=== PATIENT | male | born 1965 | race Caucasian/White ===

== ENCOUNTER → 2017-11-06 07:01 | Outpatient (CLI) | payer OTHER, SELFPAY ==
[2017-11-06 10:13] LABS: Absolute Lymphocyte Count 1.73 X10^3/ul (0.83-4.51); Absolute Neutrophil Count 5.8 X10^3/uL (2.0-7.7); Basophil# 0.05 X10^3/uL; Basophil% 0.6 % (0-1); Eosinophil# 0.13 X10^3/uL; Eosinophils% 1.5 % (0-5); Hematocrit 50.9 % (40-54); Hemoglobin 17.4 g/dl (13.0-16.5); Lymphocyte # 1.73 X10^3/ul (4.0); Lymphocyte % 19.7 % (19-41); Mean Corp Hgb Conc 34.2 g/gl (32-36); Mean Corpuscular Hgb 29.8 pg (27.0-32.0); Mean Corpuscular Volume 87.3 fL (80-94); Mean Platelet Vol. 11.8 fl (6.2-12.0); Monocyte# 1.03 X10^3/uL; Monocyte% 11.7 % (0-10); Neutrophil # 5.81 X10^3/uL (2.7-7.7); Platelet Count 311 K/mm3 (150-450); RBC Distribution Width CV 13.9 % (11.6-14.6); RBC Distribution Width SD 44.4 fl (35.1-43.9); Red Blood Count 5.83 M/mm3 (4.6-6.2); White Blood Count 8.8 K/mm3 (4.4-11.0)
[2017-11-06 10:15] LABS: POSITIVE COUNT NO; POSITIVE DIFFERENTIAL NO; POSITIVE MORPHOLOGY NO
[2017-11-06 10:41] LABS: Hemoglobin A1c 10.2 % (4.2-6.3)
[2017-11-06 10:57] LABS: Cholesterol 140 mg/dL (200); High Density Lipoprotein 44 mg/dL; PSA,Total - Annual Screen 0.81 ng/mL (0.00-4.00); Thyroid Stim Hormone (TSH) 2.96 uIU/mL (0.358-3.74); Triglycerides 149 mg/dL; Very Low Density Lipoprotein 30 mg/dL (5-40)
[2017-11-11 15:08] LABS: Testosterone, Free 8.89 ng/dL (5.00-21.00)
[2017-11-12 11:59] LABS: Testosterone, % Free 4.91 % (1.50-4.20); Testosterone, Total 181 ng/dL (264-916)
== END ==
PROVIDERS: Family Provider Family Medicine; PCP Family Medicine; Visit Provider Family Medicine
DX: E11.9 Type 2 diabetes mellitus without complications (principal); E29.1 Testicular hypofunction; E78.5 Hyperlipidemia, unspecified; E66.9 Obesity, unspecified; Z12.5 Encounter for screening for malignant neoplasm of prostate
CPT/HCPCS: 36415; 80061; 83036; 84153; 84402; 84403; 84443; 85025; G0103

== ENCOUNTER → 2018-01-28 15:21 | Outpatient (CLI) | payer OTHER, SELFPAY ==
[2018-01-28 17:28] LABS: Absolute Lymphocyte Count 2.65 X10^3/ul (0.83-4.51); Absolute Neutrophil Count 5.1 X10^3/uL (2.0-7.7); Basophil# 0.05 X10^3/uL; Basophil% 0.5 % (0-1); Eosinophil# 0.19 X10^3/uL; Eosinophils% 2.1 % (0-5); Hematocrit 53.2 % (40-54); Hemoglobin 17.8 g/dl (13.0-16.5); Lymphocyte # 2.65 X10^3/ul (4.0); Lymphocyte % 28.8 % (19-41); Mean Corp Hgb Conc 33.5 g/gl (32-36); Mean Corpuscular Hgb 30.7 pg (27.0-32.0); Mean Corpuscular Volume 91.7 fL (80-94); Mean Platelet Vol. 11.5 fl (6.2-12.0); Monocyte# 1.19 X10^3/uL; Monocyte% 12.9 % (0-10); Neutrophil # 5.08 X10^3/uL (2.7-7.7); Neutrophil % 55.4 % (47-70); Platelet Count 375 K/mm3 (150-450); RBC Distribution Width CV 13.7 % (11.6-14.6); RBC Distribution Width SD 45.8 fl (35.1-43.9); White Blood Count 9.2 K/mm3 (4.4-11.0)
[2018-01-28 17:36] LABS: Hemoglobin A1c 9.9 % (4.2-6.3); POSITIVE COUNT NO; POSITIVE DIFFERENTIAL NO; POSITIVE MORPHOLOGY NO
== END ==
PROVIDERS: Family Provider Family Medicine; PCP Family Medicine; Visit Provider Family Medicine
DX: E11.9 Type 2 diabetes mellitus without complications (principal); D58.2 Other hemoglobinopathies
CPT/HCPCS: 36415; 83036; 85025

== ENCOUNTER → 2019-03-31 | Outpatient (CLI) | payer OTHER, SELFPAY ==
[2019-03-31 10:04] LABS: Absolute Lymphocyte Count 1.55 X10^3/uL (0.83-4.51); Absolute Neutrophil Count 5.1 X10^3/uL (2.0-7.7); Basophil# 0.06 X10^3/uL; Basophil% 0.8 % (0-1); Eosinophil# 0.13 X10^3/uL; Eosinophils% 1.7 % (0-5); Hematocrit 45.5 % (40-54); Hemoglobin 15.1 g/dL (13.0-16.5); Lymphocyte # 1.55 X10^3/ul (4.0); Lymphocyte % 20.1 % (19-41); Mean Corp Hgb Conc 33.2 g/dL (32-36); Mean Corpuscular Hgb 29.7 pg (27.0-32.0); Mean Corpuscular Volume 89.6 fL (80-94); Mean Platelet Vol. 12.8 fl (6.2-12.0); Monocyte# 0.82 X10^3/uL; Monocyte% 10.6 % (0-10); NRBC Flagged by Analyzer 0 % (0-5); Neutrophil % 66.3 % (47-70); Platelet Count 277 K/mm3 (150-450); RBC Distribution Width CV 12.4 % (11.6-14.6); RBC Distribution Width SD 40.9 fl (35.1-43.9); Red Blood Count 5.08 M/mm3 (4.6-6.2); White Blood Count 7.7 K/mm3 (4.4-11.0)
[2019-03-31 10:31] LABS: Hemoglobin A1c 10.7 % (4.2-6.3)
[2019-03-31 10:33] LABS: AST(SGOT) 12 U/L (15-37); Alanine Aminotransfer ALT/SGPT 24 U/L (16-61); Albumin, Serum 3.4 g/dL (3.2-5.0); Alkaline Phosphatase 44 U/L (45-117); Anion Gap 9 (5-15); BUN 18 mg/dL (7-18); BUN/Creat Ratio 25.2 RATIO (10-20); Calcium,Total 8.5 mg/dL (8.5-10.1); Chloride 104 mmol/L (98-107); Cholesterol 175 mg/dL (200); Creatinine, Serum 0.71 mg/dL (0.70-1.30); EST Glomerular Filtration Rate 122 mL/min (>60); Est Glom Filt Rate - Afr Amer 148 mL/min (>60); Globulin 3.5 g/dL (2.2-4.2); Glucose 277 mg/dL (74-106); High Density Lipoprotein 44 mg/dL; Potassium 3.9 mmol/L (3.5-5.1); Protein, Total 6.9 g/dL (6.4-8.2); Sodium Level 135 mmol/L (136-145); Triglycerides 165 mg/dL; Very Low Density Lipoprotein 33 mg/dL (5-40)
[2019-04-04 20:07] LABS: Testosterone, Free 5.48 ng/dL (5.00-21.00)
[2019-04-06 13:44] LABS: Testosterone, % Free 3.15 % (1.50-4.20); Testosterone, Total 174 ng/dL (264-916)
== END | disposition home or self-care (01) ==
LOC: MTLAB 07:04
PROVIDERS: Family Provider Family Medicine; PCP Family Medicine; Referring Provider Family Medicine; Visit Provider Family Medicine
DX: Z00.00 Encounter for general adult medical examination without abnormal findings (principal); E11.9 Type 2 diabetes mellitus without complications; E29.1 Testicular hypofunction
CPT/HCPCS: 36415; 80053; 80061; 83036; 84402; 84403; 85025

== ENCOUNTER → 2019-05-21 10:32 | Outpatient (CLI) | payer OTHER, SELFPAY ==
--- NOTE | 2019-05-21 10:36 | STEWCON_ITS ---
Reason For Study: SU, FAMILY HX HEART DISEASE Stress Results Protocol: Stress Echocardiogram Maximum Predicted HR: 166 bpm Target HR: 141 bpm % Maximum Predicted HR: 93 % DurationHeart Rate Stage (mm:ss) (bpm) BP Comment BASELINE 83 118/88DILUTED DEFINITY 4 CC USED WESLEY PROTOCOL- STAGE 1 3:00 116 128/90NO SX WESLEY PROTOCOL- STAGE 2 3:00 131 140/84SL SOB WESLEY PROTOCOL- STAGE 3 2:03 155 158/84SOB, NO CP RECOVERY 98 124/86 Stress Duration: 8:03 mm:ss Maximum Stress HR: 155 bpm Baseline Echocardiogram Findings The estimated ejection fraction is 65 %. Stress Echo Wall motion Data Resting WM Intermediate WM Stress WM Resting Wall Motion Wall Motion Stress No regional wall motion No regional wall motion abnormalities noted. abnormalities noted. EKG Data The baseline ECG displays normal sinus rhythm. The patient exercised according to the regular Wesley protocol for a total duration of 8:03. The maximum heart rate attained was 155 beats per minute. This was 93% of maximum predicted heart rate. The patient exercised into stage 3 of the Wesley protocol. During stress, there were no ST or T wave changes noted to suggest ischemia. No clinical angina was noted. Interpretation Summary The estimated ejection fraction is 65 %. Normal, adequate, treadmill echocardiogram. Negative for ischemia by EKG and echocardiographic criteria. No anginal symptoms noted. No arrhythmias noted. Appropriate blood pressure response to exercise. Average exercise capacity for age. Decreased sensitivity due to poor echo windows requiring Definity agent. Test terminated due to attainment target heart rate and dyspnea. Patient tolerated the procedure well. No complications. The study was technically difficult. Contrast injection was performed. Ordering Physician: Abran Emmanuel Referring Physician: Abran Emmanuel Performed By: Zulma Lewsi, RDCS, RVT
== END ==
PROVIDERS: Family Provider Family Medicine; PCP Family Medicine; Referring Provider Family Medicine; Visit Provider Family Medicine
DX: R06.09 Other forms of dyspnea (principal); E11.9 Type 2 diabetes mellitus without complications
CPT/HCPCS: 93017; 93350; Q9957; A4216; C8928

== ENCOUNTER → 2019-10-02 | Outpatient (CLI) | payer OTHER, SELFPAY ==
[2019-09-09 08:26] VITALS: BMI 34.8
[2019-10-02 10:28] LABS: Absolute Lymphocyte Count 1.97 X10^3/uL (0.83-4.51); Absolute Neutrophil Count 5.2 X10^3/uL (2.0-7.7); Basophil# 0.07 X10^3/uL; Basophil% 0.8 % (0-1); Eosinophil# 0.16 X10^3/uL; Eosinophils% 1.9 % (0-5); Hematocrit 45.9 % (40-54); Hemoglobin 15.3 g/dL (13.0-16.5); Lymphocyte # 1.97 X10^3/ul (4.0); Lymphocyte % 23.3 % (19-41); Mean Corp Hgb Conc 33.3 g/dL (32-36); Mean Corpuscular Hgb 30.5 pg (27.0-32.0); Mean Corpuscular Volume 91.6 fL (80-94); Mean Platelet Vol. 12.1 fl (6.2-12.0); Monocyte# 0.97 X10^3/uL; Monocyte% 11.5 % (0-10); NRBC Flagged by Analyzer 0 % (0-5); Neutrophil # 5.23 X10^3/uL (2.7-7.7); Platelet Count 326 K/mm3 (150-450); RBC Distribution Width CV 13.4 % (11.6-14.6); RBC Distribution Width SD 44.5 fl (35.1-43.9); Red Blood Count 5.01 M/mm3 (4.6-6.2); White Blood Count 8.4 K/mm3 (4.4-11.0)
[2019-10-02 11:01] LABS: Hemoglobin A1c 8.2 % (4.2-6.3)
[2019-10-02 11:20] LABS: AST(SGOT) 8 U/L (15-37); Alanine Aminotransfer ALT/SGPT 20 U/L (16-61); Albumin, Serum 3.5 g/dL (3.2-5.0); Alkaline Phosphatase 42 U/L (45-117); Anion Gap 10 (5-15); BUN 21 mg/dL (7-18); BUN/Creat Ratio 24.6 RATIO (10-20); Calcium,Total 8.6 mg/dL (8.5-10.1); Chloride 104 mmol/L (98-107); Creatinine, Serum 0.85 mg/dL (0.70-1.30); EST Glomerular Filtration Rate 99 mL/min (>60); Est Glom Filt Rate - Afr Amer 120 mL/min (>60); Globulin 3.6 g/dL (2.2-4.2); Glucose 189 mg/dL (74-106); Potassium 4.1 mmol/L (3.5-5.1); Protein, Total 7.1 g/dL (6.4-8.2); Sodium Level 137 mmol/L (136-145)
== END | disposition home or self-care (01) ==
LOC: MTLAB 07:05
PROVIDERS: PCP Family Medicine; Referring Provider Family Medicine; Visit Provider Family Medicine
DX: E78.5 Hyperlipidemia, unspecified (principal); E66.9 Obesity, unspecified; D58.2 Other hemoglobinopathies
CPT/HCPCS: 36415; 80053; 83036; 85025

== ENCOUNTER → 2020-03-28 07:05 | Outpatient (CLI) | payer OTHER, SELFPAY ==
[2019-09-09 08:26] VITALS: BMI 34.8
[2020-03-28 10:21] LABS: Absolute Lymphocyte Count 1.81 X10^3/uL (0.83-4.51); Absolute Neutrophil Count 4.9 X10^3/uL (2.0-7.7); Basophil# 0.08 X10^3/uL; Eosinophil# 0.18 X10^3/uL; Eosinophils% 2.3 % (0-5); Hemoglobin 16.1 g/dL (13.0-16.5); Lymphocyte # 1.81 X10^3/ul (4.0); Lymphocyte % 23.3 % (19-41); Mean Corp Hgb Conc 32.9 g/dL (32-36); Mean Corpuscular Hgb 29.2 pg (27.0-32.0); Mean Corpuscular Volume 88.9 fL (80-94); Mean Platelet Vol. 12.5 fl (6.2-12.0); Monocyte# 0.81 X10^3/uL; Monocyte% 10.4 % (0-10); NRBC Flagged by Analyzer 0 % (0-5); Neutrophil # 4.86 X10^3/uL (2.7-7.7); Neutrophil % 62.7 % (47-70); Platelet Count 281 K/mm3 (150-450); RBC Distribution Width CV 12.5 % (11.6-14.6); RBC Distribution Width SD 41.1 fl (35.1-43.9); Red Blood Count 5.51 M/mm3 (4.6-6.2); White Blood Count 7.8 K/mm3 (4.4-11.0)
[2020-03-28 10:35] LABS: Hemoglobin A1c 9.9 % (3.8-5.6)
[2020-03-28 10:37] LABS: Microalbumin,Random Urine 17.6 mg/L (NO RANGE EST.); Microalbumin:Creatinine Ratio 12.1 mg/g CRE (<30 mg/g CRE)
[2020-03-28 10:48] LABS: ALB/GLOB Ratio 0.9 RATIO (0.9-2.4); AST(SGOT) 9 U/L (15-37); Alanine Aminotransfer ALT/SGPT 24 U/L (16-61); Albumin, Serum 3.5 g/dL (3.2-5.0); Alkaline Phosphatase 50 U/L (45-117); Anion Gap 8 (5-15); BUN 22 mg/dL (7-18); BUN/Creat Ratio 26.5 RATIO (10-20); Calcium,Total 8.8 mg/dL (8.5-10.1); Chloride 104 mmol/L (98-107); Cholesterol 163 mg/dL (200); Creatinine, Serum 0.83 mg/dL (0.70-1.30); EST Glomerular Filtration Rate 102 mL/min (>60); Est Glom Filt Rate - Afr Amer 124 mL/min (>60); Globulin 3.7 g/dL (2.2-4.2); Glucose 268 mg/dL (74-106); High Density Lipoprotein 51 mg/dL; Potassium 4.2 mmol/L (3.5-5.1); Protein, Total 7.2 g/dL (6.4-8.2); Sodium Level 135 mmol/L (136-145); Triglycerides 118 mg/dL; Very Low Density Lipoprotein 24 mg/dL (5-40)
== END ==
PROVIDERS: PCP Family Medicine; Referring Provider Family Medicine; Visit Provider Family Medicine
DX: E11.9 Type 2 diabetes mellitus without complications (principal); E78.5 Hyperlipidemia, unspecified; D58.2 Other hemoglobinopathies; Z12.5 Encounter for screening for malignant neoplasm of prostate
CPT/HCPCS: 36415; 80053; 80061; 82043; 82570; 83036; 84153; 85025; G0103

== ENCOUNTER → 2020-10-26 07:00 | Outpatient (CLI) | payer OTHER, SELFPAY ==
[2019-09-09 08:26] VITALS: BMI 34.8
[2020-10-26 10:13] LABS: Hemoglobin A1c 9.8 % (3.8-5.6)
== END ==
PROVIDERS: PCP Family Medicine; Referring Provider Family Medicine; Visit Provider Family Medicine
DX: E11.9 Type 2 diabetes mellitus without complications (principal)
CPT/HCPCS: 36415; 83036

== ENCOUNTER → 2021-02-13 07:11 | Outpatient (CLI) | payer OTHER, SELFPAY ==
[2021-02-13 10:01] LABS: Basophil# 0.05 X10^3/uL; Basophil% 0.8 % (0-1); Eosinophil# 0.04 X10^3/uL; Eosinophils% 0.6 % (0-5); Hematocrit 48.8 % (40-54); Lymphocyte % 22.7 % (19-41); Mean Corp Hgb Conc 32.8 g/dL (32-36); Mean Corpuscular Hgb 29.5 pg (27.0-32.0); Mean Platelet Vol. 12.7 fl (6.2-12.0); Monocyte# 0.64 X10^3/uL; Monocyte% 10.4 % (0-10); NRBC Flagged by Analyzer 0 % (0-5); Platelet Count 282 K/mm3 (150-450); RBC Distribution Width CV 13.2 % (11.6-14.6); RBC Distribution Width SD 43.5 fl (35.1-43.9); Red Blood Count 5.42 M/mm3 (4.6-6.2); White Blood Count 6.2 K/mm3 (4.4-11.0)
[2021-02-13 10:17] LABS: ALB/GLOB Ratio 0.8 RATIO (0.9-2.4); AST(SGOT) 12 U/L (15-37); Alanine Aminotransfer ALT/SGPT 29 U/L (16-61); Albumin, Serum 3.1 g/dL (3.2-5.0); Alkaline Phosphatase 49 U/L (45-117); Anion Gap 9 (5-15); BUN 18 mg/dL (7-18); Calcium,Total 8.9 mg/dL (8.5-10.1); Chloride 99 mmol/L (98-107); Cholesterol 241 mg/dL (200); Creatinine, Serum 0.82 mg/dL (0.70-1.30); EST Glomerular Filtration Rate 104 mL/min (>60); Est Glom Filt Rate - Afr Amer 125 mL/min (>60); Globulin 3.9 g/dL (2.2-4.2); Glucose 323 mg/dL (74-106); High Density Lipoprotein 55 mg/dL; Potassium 4.6 mmol/L (3.5-5.1); Sodium Level 135 mmol/L (136-145); Triglycerides 106 mg/dL; Very Low Density Lipoprotein 21 mg/dL (5-40)
[2021-02-13 10:30] LABS: Microalbumin,Random Urine 12.1 mg/L (NO RANGE EST.); Microalbumin:Creatinine Ratio 11.2 mg/g CRE (<30 mg/g CRE)
== END ==
PROVIDERS: PCP Family Medicine; Referring Provider Family Medicine; Visit Provider Family Medicine
DX: Z00.00 Encounter for general adult medical examination without abnormal findings (principal); E11.9 Type 2 diabetes mellitus without complications
CPT/HCPCS: 36415; 80053; 80061; 82043; 82570; 83036; 85025

== ENCOUNTER 2022-01-30 07:33 | Emergency (ER) | payer BC, SELFPAY ==
[2022-01-30 07:33] VITALS: BP 137/86; PULSE 84; RESP 14; TEMP 36.2; O2SAT 96; BMI 35.4
--- NOTE | 2022-01-30 07:47 | EKG12_ITS ---
Test Reason : cp Blood Pressure : / mmHG Vent. Rate : 088 BPM Atrial Rate : 088 BPM P-R Int : 142 ms QRS Dur : 086 ms QT Int : 372 ms P-R-T Axes : 069 012 021 degrees QTc Int : 450 ms Normal sinus rhythm Normal ECG Confirmed by RICARDO ARANDA MD ([id number]), film editor TIN BENITEZ ([id number]) on 01/31/2022 1:56:25 PM Referred By: Pc Confirmed By:RICARDO ARANDA MD
--- NOTE | 2022-01-30 07:48 | EDS_ITS ---
HPI History of Present Illness Chief Complaint: Chest Pain Narrative Narrative: Patient presents with chest pain. He had an episode of chest pain in the middle of the night lasting about 3 minutes it was sharp and aching it was across his chest, he had no radiation to his back arms or neck or abdomen. He had no back pain or tearing sensation, no pleuritic component. He has no calf pain or leg pain he has no edema no recent travel history. He is currently asymptomatic without any chest pain or shortness of breath. No recent fevers or chills or cough. [facility] Medical History (Updated 01/30/22 @ 08:[address] Dakotah Reynaga MD) Diabetes 1.5, managed as type 2 High triglycerides Seizures Home Medications Novolin L 01/30/22 [History Last Taken Unknown] Allergy/AdvReac Type Severity Reaction Status Date / Time No Known Allergies Allergy Verified 01/30/22 07:33 Family History Unknown No problems noted. Social History Smoking Status: Never smoker alcohol intake: never substance use type: does not use additional social history: DOES NOT USE ASPIRIN DOES NOT USE IBUPROFEN ROS ROS ED ROS Narrative Past medical history: Reviewed Medications: Reviewed Social history: Noncontributory Review of systems: All systems negative except as indicated General: No fever Eyes: No visual changes ENT: No upper airway congestion, normal voice Neck: No neck pain Cardiovascular: As in HPI. No palpitations Respiratory: No shortness of breath or cough Gastrointestinal: No abdominal pain, nausea vomiting or diarrhea Genitourinary: No dysuria Musculoskeletal: Denies myalgias no difficulty with ambulation Skin: No rash Neurological: No memory loss, confusion or any focal weakness Psych: No recent behavioral changes Hematologic: No easy bleeding or easy bruising EXAM Physical Exam Narrative Exam Narrative: Physical exam General: Well nourished, Well developed, No Acute Distress Head: Normocephalic, Atraumatic Eyes: Conjunctiva not pale ENT: Moist mucous membranes Neck: Supple, Nontender, No lymphadenopathy Cardiovascular: Regular rate, Regular rhythm Respiratory: No distress, CTA bilaterally Abdomen: Soft, Nontender, Nondistended Back: Nontender, Normal Inspection. Negative for: CVA tenderness Extremities: Nontender, No edema Skin: Normal color, No rash Neurological: Alert, Normal Strength, Normal Sensation Psychological: Normal affect Const Vital Signs: 01/30/22 07:33 01/30/22 07:43 01/30/22 07:51 Temperature 97.2 F L Temperature Source Temporal Pulse Rate 84 Respiratory Rate 14 Respiratory Effort Normal Non-Labored Blood Pressure 137/86 H Blood Pressure Mean 103 Pulse Ox 96 94 Oxygen Delivery Method Room Air Room Air Heart Score History: Slightly/Non-Suspicious ECG: Normal Age: >45 - <65 years Risk Factors: >/= 3 Risk Factors or History of CAD Troponin: </= Normal Limit Score: 3 MDM MDM MDM Narrative Medical decision making narrative: Patient has a normal work-up and a normal troponin is has had a score is a 3 he is asymptomatic I believe he can be safely discharged with cardiology follow-up. I am not worried about any kind of thromboembolic event. Lab Data Labs: Laboratory Results - last 24 hr 01/30/22 01/30/22 07:54 07:54 WBC 8.2 RBC 5.10 Hgb 15.5 Hct 46.0 MCV 90.2 MCH 30.4 MCHC 33.7 RDW Std Deviation 43.8 RDW Coeff of Trey 13.2 Plt Count 356 MPV 10.3 Immature Gran % (Auto) 0.400 Neut % (Auto) 65.7 Lymph % (Auto) 19.1 [place] % (Auto) 11.3 H Eos % (Auto) 2.6 Baso % (Auto) 0.9 Absolute Neuts (auto) 5.4 Absolute Lymphs (auto) 1.56 Nucleated RBC % 0 Sodium 140 Potassium 4.0 Chloride 108 H Carbon Dioxide 27.0 Anion Gap 5 BUN 20 H Creatinine 0.79 Estim Creat Clear Calc 118.00 Est GFR (MDRD) Af Amer 131 Est GFR (MDRD) Non-Af 108 BUN/Creatinine Ratio 25.4 H Glucose 154 H Calcium 9.0 Troponin I High Sens 5 Radiography Diagnostic Testing: Clinical Impression(s) from Imaging Studies Chest X-Ray 01/30/22 08:00 IMPRESSION: No acute cardiopulmonary abnormality. Electronically Signed: Han Dawkins MD at 8:14 EDT , Chest x-ray read by me and radiologist is negative EKG Initial EKG: Comments: Normal sinus rhythm with a rate of 88. Normal NV and QTc intervals. Normal ST segments without any ischemic changes, otherwise completely normal EKG Interpreted by emergency doctor. Discharge Plan Triage Chief Complaint: Chest Pain ED Provider: Dakotah Reynaga Dx/Rx/DC Orders Clinical Impression: Chest pain, Diabetes Instructions: ED Chest Pain, Uncertain Cause Prescriptions: No Action Novolin L Primary Care Provider: Abran Emmanuel Referrals: Abran Emmanuel DO [Primary Care Provider] - Dakotah Stoll MD [Med Staff - Active Staff] - 2 Days Disposition Disposition: Home, Self Care
[2022-01-30 07:51] VITALS: O2SAT 94
[2022-01-30] MEDS: Aspirin 81 MG TAB.CHEW 324 MG PO (07:57)
[2022-01-30 07:59] LABS: Absolute Lymphocyte Count 1.56 X10^3/uL (0.83-4.51); Absolute Neutrophil Count 5.4 X10^3/uL (2.0-7.7); Basophil# 0.07 X10^3/uL; Basophil% 0.9 % (0-1); Eosinophil# 0.21 X10^3/uL; Eosinophils% 2.6 % (0-5); Hemoglobin 15.5 g/dL (13.0-16.5); Lymphocyte # 1.56 X10^3/ul (0.83-4.51); Lymphocyte % 19.1 % (19-41); Mean Corp Hgb Conc 33.7 g/dL (32-36); Mean Corpuscular Hgb 30.4 pg (27.0-32.0); Mean Corpuscular Volume 90.2 fL (80-94); Mean Platelet Vol. 10.3 fl (6.2-12.0); Monocyte# 0.92 X10^3/uL; Monocyte% 11.3 % (0-10); NRBC Flagged by Analyzer 0 % (0-5); Neutrophil # 5.36 X10^3/uL (2.7-7.7); Neutrophil % 65.7 % (47-70); Platelet Count 356 K/mm3 (150-450); RBC Distribution Width CV 13.2 % (11.6-14.6); RBC Distribution Width SD 43.8 fl (35.1-43.9); White Blood Count 8.2 K/mm3 (4.4-11.0)
--- NOTE | 2022-01-30 08:00 | RAD_ITS ---
EXAM: XR CHEST, 1 VIEW CLINICAL INDICATION: chest pain TECHNIQUE: Frontal view of the chest. This report was created using [employer]aZOOM report generation technology. COMPARISON: None. FINDINGS: LUNGS AND PLEURAL SPACES: Linear atelectasis or scarring left lung base. No pneumothorax. No effusion. HEART: Normal heart size. MEDIASTINUM: Central airways are unremarkable. No mediastinal or hilar mass. BONES/JOINTS: Old left clavicular fracture. SOFT TISSUES: Normal. UPPER ABDOMEN: Mild elevation left hemidiaphragm. RAD/Chest 1 View (Portable) IMPRESSION: No acute cardiopulmonary abnormality. Electronically Signed: Han Dawkins MD at 8:14 EDT ,
[2022-01-30 08:24] LABS: Anion Gap 5 (5-15); BUN 20 mg/dL (7-18); BUN/Creat Ratio 25.4 RATIO (10-20); Chloride 108 mmol/L (98-107); Creatinine, Serum 0.79 mg/dL (0.70-1.30); EST Glomerular Filtration Rate 108 mL/min (>60); Est Glom Filt Rate - Afr Amer 131 mL/min (>60); Glucose 154 mg/dL (74-106); Sodium Level 140 mmol/L (136-145); Troponin-I HS (w/2H Reflex) 5 pg/mL (3.0-78.0)
[2022-01-30 08:52] VITALS: BP 122/76; PULSE 72; RESP 15; O2SAT 98
[2022-01-30 09:57] LABS: Reflex Troponin-HS? (from REC) Y
== END 2022-01-30 09:04 | disposition home or self-care (01) ==
PROVIDERS: Emergency Provider Emergency Medicine; PCP Family Medicine; Visit Provider Emergency Medicine
DX: R07.9 Chest pain, unspecified (principal); E11.9 Type 2 diabetes mellitus without complications
CPT/HCPCS: 71045; 80048; 84484; 85025; 93005; 99285; A4216

== ENCOUNTER → 2022-06-12 | Outpatient (CLI) | payer BC, SELFPAY ==
[2022-06-12 10:24] LABS: AST(SGOT) 16 U/L (15-37); Alanine Aminotransfer ALT/SGPT 33 U/L (16-61); Albumin, Serum 3.2 g/dL (3.2-5.0); Alkaline Phosphatase 48 U/L (45-117); Bilirubin, Direct 0.13 mg/dL (0.00-0.30); Cholesterol 232 mg/dL (200); Globulin 3.6 g/dL (2.2-4.2); High Density Lipoprotein 52 mg/dL; Protein, Total 6.8 g/dL (6.4-8.2); Triglycerides 97 mg/dL; Very Low Density Lipoprotein 19 mg/dL (5-40)
[2022-06-12 10:27] LABS: Hemoglobin A1c 8.8 % (3.8-5.6)
[2022-06-12 10:35] LABS: Microalbumin,Random Urine 15.5 mg/L (NO RANGE EST.); Microalbumin:Creatinine Ratio 8.6 mg/g CRE (<30 mg/g CRE)
== END | disposition home or self-care (01) ==
LOC: MTLAB 07:01
PROVIDERS: PCP Family Medicine; Referring Provider Family Medicine; Visit Provider Family Medicine
DX: Z00.00 Encounter for general adult medical examination without abnormal findings (principal); E11.9 Type 2 diabetes mellitus without complications
CPT/HCPCS: 36415; 80061; 80076; 82043; 82570; 83036

== ENCOUNTER → 2023-01-03 | Outpatient (CLI) | payer BC, SELFPAY ==
[2023-01-03 11:07] LABS: Hemoglobin A1c 9.4 % (3.8-5.6)
[2023-01-03 11:09] LABS: Cholesterol 202 mg/dL (200); High Density Lipoprotein 49 mg/dL; Triglycerides 89 mg/dL; Very Low Density Lipoprotein 18 mg/dL (5-40)
== END | disposition home or self-care (01) ==
LOC: MTLAB 07:08
PROVIDERS: PCP Family Medicine; Referring Provider Family Medicine; Visit Provider Family Medicine
DX: E11.9 Type 2 diabetes mellitus without complications (principal); E78.5 Hyperlipidemia, unspecified
CPT/HCPCS: 36415; 80061; 83036

== ENCOUNTER → 2023-03-25 | Outpatient (CLI) | payer BC, SELFPAY | END | disposition home or self-care (01) | PROVIDERS: PCP Family Medicine; Referring Provider Family Medicine; Visit Provider Family Medicine | DX: R19.7 Diarrhea, unspecified (principal) | CPT/HCPCS: 83630; 87177; 87209; 87493; 87506 ==

== ENCOUNTER → 2023-09-20 | Outpatient (CLI) | payer BC, SELFPAY ==
[2023-09-20 10:01] LABS: Absolute Lymphocyte Count 1.84 X10^3/uL (0.83-4.51); Absolute Neutrophil Count 4.8 X10^3/uL (2.0-7.7); Basophil# 0.08 X10^3/uL; Eosinophil# 0.15 X10^3/uL; Eosinophils% 1.9 % (0-5); Hematocrit 47.5 % (40-54); Hemoglobin 15.7 g/dL (13.0-16.5); Lymphocyte # 1.84 X10^3/ul (0.83-4.51); Lymphocyte % 23.6 % (19-41); Mean Corp Hgb Conc 33.1 g/dL (32-36); Mean Corpuscular Hgb 29.3 pg (27.0-32.0); Mean Corpuscular Volume 88.6 fL (80-94); Mean Platelet Vol. 11.9 fl (6.2-12.0); Monocyte# 0.89 X10^3/uL; Monocyte% 11.4 % (0-10); NRBC Flagged by Analyzer 0 % (0-5); Neutrophil % 61.6 % (47-70); Platelet Count 280 K/mm3 (150-450); RBC Distribution Width CV 12.8 % (11.6-14.6); RBC Distribution Width SD 41.5 fl (35.1-43.9); Red Blood Count 5.36 M/mm3 (4.6-6.2); White Blood Count 7.8 K/mm3 (4.4-11.0)
[2023-09-20 10:17] LABS: ALB/GLOB Ratio 0.9 RATIO (0.9-2.4); AST(SGOT) 14 U/L (15-37); Alanine Aminotransfer ALT/SGPT 24 U/L (16-61); Albumin, Serum 3.3 g/dL (3.2-5.0); Alkaline Phosphatase 50 U/L (45-117); Anion Gap 5 (5-15); BUN 13 mg/dL (7-18); BUN/Creat Ratio 14.7 RATIO (10-20); Calcium,Total 8.3 mg/dL (8.5-10.1); Chloride 102 mmol/L (98-107); Cholesterol 229 mg/dL (200); Creatinine, Serum 0.89 mg/dL (0.70-1.30); EST Glomerular Filtration Rate 94 mL/min (>60); Est Glom Filt Rate - Afr Amer 113 mL/min (>60); Globulin 3.5 g/dL (2.2-4.2); Glucose 151 mg/dL (74-106); High Density Lipoprotein 44 mg/dL; PSA,Total - Annual Screen 2.33 ng/mL (0.00-4.00); Potassium 3.8 mmol/L (3.5-5.1); Protein, Total 6.8 g/dL (6.4-8.2); Sodium Level 136 mmol/L (136-145); Triglycerides 96 mg/dL; Very Low Density Lipoprotein 19 mg/dL (5-40)
[2023-09-20 10:22] LABS: Microalbumin,Random Urine 14.2 mg/L (NO RANGE EST.); Microalbumin:Creatinine Ratio 9.5 mg/g CRE (<30 mg/g CRE)
[2023-09-20 10:23] LABS: Hemoglobin A1c 9.6 % (3.8-5.6)
== END | disposition home or self-care (01) ==
PROVIDERS: PCP Family Medicine; Referring Provider Family Medicine; Visit Provider Family Medicine
DX: Z00.00 Encounter for general adult medical examination without abnormal findings (principal); E11.3393 Type 2 diabetes mellitus with moderate nonproliferative diabetic retinopathy without macular edema, bilateral
CPT/HCPCS: 36415; 80053; 80061; 82043; 82570; 83036; 84153; 85025; G0103

== ENCOUNTER → 2024-02-27 | Outpatient (CLI) | payer BC, SELFPAY ==
[2024-02-27 11:58] LABS: AST(SGOT) 7 U/L (15-37); Alanine Aminotransfer ALT/SGPT 25 U/L (16-61); Albumin, Serum 3.3 g/dL (3.2-5.0); Alkaline Phosphatase 55 U/L (45-117); Bilirubin, Direct 0.14 mg/dL (0.00-0.30); Cholesterol 210 mg/dL (200); Globulin 3.5 g/dL (2.2-4.2); High Density Lipoprotein 51 mg/dL; Protein, Total 6.8 g/dL (6.4-8.2); Triglycerides 89 mg/dL; Very Low Density Lipoprotein 18 mg/dL (5-40)
[2024-02-27 12:16] LABS: Hemoglobin A1c 9.9 % (3.8-5.6)
== END | disposition home or self-care (01) ==
PROVIDERS: PCP Family Medicine; Referring Provider Family Medicine; Visit Provider Family Medicine
DX: E11.3393 Type 2 diabetes mellitus with moderate nonproliferative diabetic retinopathy without macular edema, bilateral (principal); E78.5 Hyperlipidemia, unspecified
CPT/HCPCS: 36415; 80061; 80076; 83036

== ENCOUNTER → 2024-04-23 | Outpatient (CLI) | payer BC, SELFPAY ==
--- NOTE | 2024-04-23 13:08 | RAD_ITS ---
STUDY: X-RAY - LUMBAR SPINE REASON FOR EXAM: Male, 58 years old. R -- LUMBAR RADICULOPATHY TECHNIQUE: Frontal, lateral, and oblique view(s) of the lumbar spine were obtained. COMPARISON: December 13, 2006 FINDINGS: Normal lumbar lordosis. There is no substantial scoliosis. There is a normal alignment of the vertebrae. There is multilevel endplate spondylosis of the lumbar vertebrae. There is disc space narrowing at L5-S1. There is no demonstrated fracture. There are vascular calcifications. There is postoperative change in the left upper abdomen. RAD/L/S Spine Min 4 Views IMPRESSION: Degenerative changes of the spine, as detailed above. Electronically Signed: Ryan Collier MD at 11:58 EST ,
== END | disposition home or self-care (01) ==
PROVIDERS: PCP Family Medicine; Referring Provider Family Medicine; Visit Provider Family Medicine
DX: M54.16 Radiculopathy, lumbar region (principal)
CPT/HCPCS: 72110

== ENCOUNTER → 2024-06-29 | Outpatient (CLI) | payer OTHER, SELFPAY ==
[2024-06-29 11:10] LABS: ALB/GLOB Ratio 0.8 RATIO (0.9-2.4); AST(SGOT) 23 U/L (15-37); Alanine Aminotransfer ALT/SGPT 47 U/L (16-61); Albumin, Serum 3.3 g/dL (3.2-5.0); Alkaline Phosphatase 54 U/L (45-117); Anion Gap 7 (5-15); BUN 20 mg/dL (7-18); BUN/Creat Ratio 24.8 RATIO (10-20); Calcium,Total 8.9 mg/dL (8.5-10.1); Chloride 106 mmol/L (98-107); Cholesterol 155 mg/dL (200); Creatinine, Serum 0.81 mg/dL (0.70-1.30); EST Glomerular Filtration Rate 104 mL/min (>60); Est Glom Filt Rate - Afr Amer 126 mL/min (>60); Glucose 141 mg/dL (74-106); High Density Lipoprotein 50 mg/dL; Potassium 4.1 mmol/L (3.5-5.1); Protein, Total 7.3 g/dL (6.4-8.2); Sodium Level 139 mmol/L (136-145); Triglycerides 93 mg/dL; Very Low Density Lipoprotein 19 mg/dL (5-40)
[2024-06-29 12:08] LABS: Hemoglobin A1c 9.7 % (3.8-5.6)
== END | disposition home or self-care (01) ==
LOC: MTLAB 07:13
PROVIDERS: PCP Family Medicine; Referring Provider Family Medicine; Visit Provider Family Medicine
DX: Z01.83 Encounter for blood typing (principal); E11.3393 Type 2 diabetes mellitus with moderate nonproliferative diabetic retinopathy without macular edema, bilateral; E78.5 Hyperlipidemia, unspecified
CPT/HCPCS: 36415; 80053; 80061; 83036; 86900; 86901